=== PATIENT | male | born 1995 | race African-American/Black ===

== ENCOUNTER 2024-02-09 14:03 | Emergency (ER) | payer BC, OTHER, SELFPAY ==
[2024-02-09] MEDS ORDERED: Dexamethasone 10 MG/ML VIAL ONE (16:37)
[2024-02-09] MEDS ORDERED: Ibuprofen 800 MG TAB ONE (16:48)
== END 2024-02-09 16:59 | disposition home or self-care (01) ==
LOC: CSHERS 14:03
DX: J06.9 Acute upper respiratory infection, unspecified (principal); F17.290 Nicotine dependence, other tobacco product, uncomplicated
CPT/HCPCS: 87081; 87428; 87430; 99283; J1100

== ENCOUNTER 2024-03-13 15:44 | Emergency (ER) | payer OTHER | END 2024-03-13 17:43 | disposition home or self-care (01) | LOC: CSHERS 15:44 | DX: J06.9 Acute upper respiratory infection, unspecified (principal); F17.290 Nicotine dependence, other tobacco product, uncomplicated | CPT/HCPCS: 87428; 93005; 99284 ==